=== PATIENT | female | born 1975 | race Caucasian/White ===

== ENCOUNTER → 2016-10-30 | Outpatient (REF) ==
[~2016-10-30] MED LIST: /DULO30CA OR; /ESOM40CA OR; /FEXO18TA OR; ATIV0.5T OR; DICY10CA2 OR; NEUR300C OR; PERC5TAB8 OR; TOPI100T OR
== END ==
LOC: M LAB 15:39
PROVIDERS: ATTEND Nurse Practitioner Adult Health
DX: Z02.9 Encounter for administrative examinations, unspecified (principal)

== ENCOUNTER → 2018-07-22 | Outpatient (CLI) | payer OTHER, BC | LOC: M RAD 14:48 | DX: N63.20 Unspecified lump in the left breast, unspecified quadrant (principal) | CPT/HCPCS: 77066 ==

== ENCOUNTER 2018-09-23 07:52 | Day surgery (SDC) | payer OTHER ==
[~2018-09-23 07:52] MED LIST changes: -/DULO30CA OR; -/ESOM40CA OR; -/FEXO18TA OR; -ATIV0.5T OR; -DICY10CA2 OR; +KETOROLAC 60 MG/2 ML VIAL (J1885) As Ordered; +LIDOCAINE 2% INJ 100 MG/5 ML SDV (FOR ANES.) As Ordered; +MIDAZOLAM INJ 2 MG/2 ML VIAL (J2250) As Ordered; -NEUR300C OR; +ONDANSETRON 4MG/2ML VIAL (J2405) As Ordered; -PERC5TAB8 OR; +PROPOFOL 200 MG/20 ML VIAL As Ordered; -TOPI100T OR; +dexameTHASONE 4 MG/ML 1ML VIAL (J1100) As Ordered; +fentaNYL 100 MCG/2 ML INJECTION (J3010) As Ordered
[2018-09-23 08:28] LABS: CONTROL LINE UCG INT CTR LINE PRESENT; URINE PREG TEST NEGATIVE (NEGATIVE)
[2018-09-23 08:40] LABS: HEMATOCRIT 41.1 % (36.0-47.0); HEMOGLOBIN 13.8 g/dl (12.0-15.5); MEAN CORPUSCULAR HEMOGLOBIN 30.8 pg (27.0-33.0); MEAN CORPUSCULAR HGB CONC 33.6 g/dl (32.0-36.5); MEAN CORPUSCULAR VOLUME 91.7 fl (80.0-96.0); PLATELET COUNT, AUTOMATED 218 10^3/uL (150-450); RED BLOOD COUNT 4.48 10^6/uL (4.00-5.40); RED CELL DISTRIBUTION WIDTH 12.8 % (11.5-14.5); WHITE BLOOD COUNT 6.6 10^3/uL (4.0-10.0)
[2018-09-23] MEDS: LR 1,000 ML IV (08:50)
[2018-09-23] MEDS ORDERED: METOCLOPRAMIDE INJ 10MG/2ML VIAL (J2765) As Ordered (08:55)
[2018-09-23] MEDS ORDERED: dexameTHASONE 4 MG/ML 1ML VIAL (J1100) As Ordered (08:56)
[2018-09-23] MEDS ORDERED: SUCCINYLCHOLINE 100 MG/5 ML SYRINGE (J0330) As Ordered (09:36)
[2018-09-23] MEDS ORDERED: ePHEDrine SULFATE 25 MG/5 ML(5MG/ML) SYRINGE As Ordered (09:54)
[2018-09-23] MEDS ORDERED: fentaNYL 100 MCG/2 ML INJECTION (J3010) As Ordered (10:17)
[2018-09-23] MEDS: fentaNYL 100 MCG/2 ML INJECTION (J3010) IV ×3 (10:22→10:40)
[2018-09-23] MEDS ORDERED: ONDANSETRON 4MG/2ML VIAL (J2405) IV (10:30)
[2018-09-23] MEDS ORDERED: LR 1,000 ML IV ×2 (10:30)
[2018-09-23] MEDS ORDERED: KETOROLAC 30 MG/ML VIAL (J1885) IV (10:30)
[2018-09-23] MEDS ORDERED: PERCOCET 5MG/325MG TAB PO (10:30)
[2018-09-23] MEDS: PERCOCET 5MG/325MG TAB PO ×2 (10:40→11:41)
== END 2018-09-23 12:30 | disposition home or self-care (01) ==
LOC: M SDC 07:52
DX: N92.0 Excessive and frequent menstruation with regular cycle (principal); F41.9 Anxiety disorder, unspecified; G43.909 Migraine, unspecified, not intractable, without status migrainosus; K21.9 Gastro-esophageal reflux disease without esophagitis; M54.9 Dorsalgia, unspecified; Z88.5 Allergy status to narcotic agent; Z88.8 Allergy status to other drugs, medicaments and biological substances; Z79.899 Other long term (current) drug therapy; Z72.0 Tobacco use; Z98.51 Tubal ligation status
CPT/HCPCS: 58563

== ENCOUNTER 2019-05-22 10:14 | Emergency (ER) | payer OTHER ==
[~2019-05-22] VITALS: Ht 162.6 cm; Wt 70.9 kg
[~2019-05-22 10:14] MED LIST changes: +/FEXO18TA OR; +ATIV0.5T OR; +ATIV1TAB10 PO; +CYMB1CAP5 OR; +DICY10CA2 OR; +GABA-1171 PO; -KETOROLAC 60 MG/2 ML VIAL (J1885) As Ordered; -LIDOCAINE 2% INJ 100 MG/5 ML SDV (FOR ANES.) As Ordered; -MIDAZOLAM INJ 2 MG/2 ML VIAL (J2250) As Ordered; +NEUR300C OR; +NEXI1CAP3 OR; -ONDANSETRON 4MG/2ML VIAL (J2405) As Ordered; +OXYC1TAB23 PO; +PERC5TAB8 OR; -PROPOFOL 200 MG/20 ML VIAL As Ordered; +TOPI100T OR; -dexameTHASONE 4 MG/ML 1ML VIAL (J1100) As Ordered; -fentaNYL 100 MCG/2 ML INJECTION (J3010) As Ordered
[2019-05-22] MEDS ORDERED: GABA-843 (10:27)
[2019-05-22] MEDS ORDERED: NS 1,000 ML IV ONE (11:30)
[2019-05-22] MEDS ORDERED: METOCLOPRAMIDE INJ 10MG/2ML VIAL (J2765) IV ONE (11:30)
[2019-05-22] MEDS ORDERED: diphenhydrAMINE INJ 50MG/ML VIAL (J1200) IV ONE (11:30)
[2019-05-22] MEDS ORDERED: KETOROLAC 30 MG/ML VIAL (J1885) IV ONE (11:30)
[2019-05-22 11:45] LABS: HEMATOCRIT 43.3 % (36.0-47.0); HEMOGLOBIN 14.4 g/dl (12.0-15.5); MEAN CORPUSCULAR HEMOGLOBIN 30.8 pg (27.0-33.0); MEAN CORPUSCULAR HGB CONC 33.3 g/dl (32.0-36.5); MEAN CORPUSCULAR VOLUME 92.5 fl (80.0-96.0); PLATELET COUNT, AUTOMATED 212 10^3/uL (150-450); RED BLOOD COUNT 4.68 10^6/uL (4.00-5.40); WHITE BLOOD COUNT 9.6 10^3/uL (4.0-10.0)
[2019-05-22 12:19] LABS: AMPHETAMINES LEVEL URINE NEGATIVE (NEGATIVE); BARBITURATES URINE NEGATIVE (NEGATIVE); BENZODIAZEPINES URINE NEGATIVE (NEGATIVE); CANNABINOIDS URINE NEGATIVE (NEGATIVE); COCAINE METABOLITE URINE NEGATIVE (NEGATIVE); METHADONE URINE NEGATIVE (NEGATIVE); OPIATES URINE NEGATIVE (NEGATIVE); PHENCYCLIDINE URINE NEGATIVE (NEGATIVE)
[2019-05-22 12:31] LABS: BLOOD UREA NITROGEN 12 MG/DL (7-18); CARBON DIOXIDE LEVEL 31 MEQ/L (21-32); CHLORIDE LEVEL 104 MEQ/L (98-107); CREATININE FOR GFR 0.88 MG/DL (0.55-1.30); GLOMERULAR FILTRATION RATE > 60.0 (>58); GLUCOSE, FASTING 94 MG/DL (70-100); MAGNESIUM LEVEL 1.9 MG/DL (1.8-2.4); POTASSIUM SERUM 4.2 MEQ/L (3.5-5.1); SODIUM LEVEL 140 MEQ/L (136-145)
[2019-05-22 14:12] VITALS: BP 116/65
== END 2019-05-22 14:23 | disposition home or self-care (01) ==
LOC: M ED 10:14
DX: R42 Dizziness and giddiness (principal); R51 Headache; F41.9 Anxiety disorder, unspecified; K58.9 Irritable bowel syndrome, unspecified; Z87.891 Personal history of nicotine dependence; Z88.5 Allergy status to narcotic agent; Z88.8 Allergy status to other drugs, medicaments and biological substances
CPT/HCPCS: 80048; 80307; 81001; 83735; 84443; 85027; 87088; 87186; 96361; 96374; 96375; 99284; J1200; J1885; J2765

== ENCOUNTER → 2019-09-18 | Outpatient (CLI) | payer OTHER ==
[~2019-09-18] MED LIST changes: +GABA-843
--- NOTE | 2019-09-19 06:39 | REP ---
REASON FOR EXAM: Pain and decreased range of motion. COMPARISON: None. There is mild hypertrophic degenerative changes seen involving the acromioclavicular joint. The acromion process is type 2. A small spur is arising from the inferior surface of the acromion process at the AC joint. There is a slight amount of fluid within the AC joint. There is mild patchy and linear T2 hypersignal seen in the supraspinatus tendon with a small amount of fluid superficial to the tendon. The subbursal surface of the supraspinatus tendon is slightly irregular. There is mild patchy T2 hypersignal seen in the subscapularis tendon. The infraspinatus and teres minor tendons are intact and of normal appearing low signal throughout. The biceps tendon resides within the bicipital groove. There is no glenohumeral joint effusion. There is a tiny amount of fluid in the subcoracoid recess. There is no supraspinatus muscle belly atrophy or retraction. The coracohumeral and coracoacromial ligaments are not frankly abnormally thickened. The marrow signal is within normal limits. IMPRESSION: 1. Mild supraspinatus tendonitis/tendinosis with AC joint changes and acromion process as described above. 2. Mild subscapularis tendonitis/tendinosis. 3. Other findings as described above. If labral pathology is of clinical concern then consider followup with shoulder MRI arthrography. Electronically Signed by Dharmesh Carrion DO 09/19/2019 08:56 A
== END ==
LOC: M RAD 10:13
PROVIDERS: ATTEND Internal Medicine
DX: M25.412 Effusion, left shoulder (principal); M75.82 Other shoulder lesions, left shoulder

== ENCOUNTER → 2020-01-01 | Outpatient (CLI) | payer OTHER | LOC: M LABSMTC 10:19 | PROVIDERS: ATTEND Family Medicine | DX: Z11.59 Encounter for screening for other viral diseases (principal); Z20.828 Contact with and (suspected) exposure to other viral communicable diseases ==

== ENCOUNTER 2020-07-02 00:14 | Emergency (ER) | payer OTHER ==
[~2020-07-02] VITALS: Ht 162.6 cm; Wt 71.4 kg
[2020-07-02 00:14] VITALS: BP 146/76
[2020-07-02] MEDS ORDERED: KETOROLAC 30 MG/ML 1ML VIAL IM ONE (01:00)
[2020-07-02] MEDS ORDERED: ONDANSETRON 4 MG ORAL DISINTEGRATING TAB PO ONE (01:00)
== END 2020-07-02 01:26 | disposition home or self-care (01) ==
LOC: M ED 00:14
DX: G43.909 Migraine, unspecified, not intractable, without status migrainosus (principal); F17.200 Nicotine dependence, unspecified, uncomplicated; Z88.5 Allergy status to narcotic agent; Z88.8 Allergy status to other drugs, medicaments and biological substances; Z79.899 Other long term (current) drug therapy
CPT/HCPCS: 96372; 99282; J1885; Q0162

== ENCOUNTER 2023-10-10 10:15 | Emergency (ER) | payer BC, OTHER ==
[~2023-10-10] VITALS: Ht 162.6 cm; Wt 75.5 kg
[~2023-10-10 10:15] MED LIST changes: +GABA-282; -GABA-843
[2023-10-10] MEDS ORDERED: LORA2TAB14 PO (10:34)
[2023-10-10] MEDS ORDERED: OMEP40CA4 PO (10:34)
[2023-10-10 12:25] LABS: RSV AMPLIFICATION NEGATIVE (NEGATIVE)
[2023-10-10] MEDS ORDERED: KETOROLAC 60MG 2ML VIAL IM ONE (12:45)
[2023-10-10] MEDS ORDERED: MAALOX 30 ML SUSP *UDC PO ONE (12:45)
[2023-10-10] MEDS ORDERED: HYOSCYAMINE SULFATE 0.125 MG SUBL TABLET PO ONE (12:45)
[2023-10-10] MEDS ORDERED: ONDANSETRON 4MG ORAL DISINTEGRATING TAB PO ONE (12:45)
[2023-10-10] MEDS ORDERED: ISOVUE-370 76% 100ML VIAL As Ordered ONE (13:17)
[2023-10-10 13:23] LABS: HEMOGLOBIN 14.1 g/dl (12.0-15.5); MEAN CORPUSCULAR HEMOGLOBIN 31.7 pg (27.0-33.0); MEAN CORPUSCULAR HGB CONC 34.4 g/dl (32.0-36.5); MEAN CORPUSCULAR VOLUME 92.1 fl (80.0-96.0); PLATELET COUNT, AUTOMATED 209 10^3/uL (150-450); RED BLOOD COUNT 4.45 10^6/uL (4.00-5.40); WHITE BLOOD COUNT 9.4 10^3/uL (4.0-10.0)
[2023-10-10 13:37] LABS: INR 1.09; PARTIAL THROMBOPLASTIN TIME 28.6 SECONDS (24.8-34.2); PROTHROMBIN TIME 13.7 SECONDS (12.5-14.5)
[2023-10-10 15:28] VITALS: BP 170/74; TEMP 97.8; O2SAT 94
== END 2023-10-10 15:27 | disposition home or self-care (01) ==
LOC: M ED 10:15
DX: U07.1 COVID-19 (principal); K52.9 Noninfective gastroenteritis and colitis, unspecified; Z88.5 Allergy status to narcotic agent; Z88.8 Allergy status to other drugs, medicaments and biological substances; F17.200 Nicotine dependence, unspecified, uncomplicated; Z79.899 Other long term (current) drug therapy
CPT/HCPCS: 71045; 74177; 80047; 85027; 85384; 85610; 85730; 87631; 96372; 99284; J1885; Q9967